=== PATIENT | male | born 1980 | race Caucasian/White ===

== ENCOUNTER 2024-05-19 00:17 | Emergency (ER) | payer SELFPAY ==
[~2024-05-19] VITALS: Ht 172.7 cm; Wt 227.0 kg
[2024-05-19 00:23] VITALS: BP 0/0; PULSE 0; RESP 0; O2SAT 18
== END 2024-05-19 00:23 ==
LOC: ER 00:17
DX: I46.9 Cardiac arrest, cause unspecified (principal); F19.90 Other psychoactive substance use, unspecified, uncomplicated
CPT/HCPCS: 31500; 99285